=== PATIENT | male | born 1975 | race Two or more races ===

== ENCOUNTER 2023-02-27 18:27 | Emergency (ER) | payer OTHER ==
[~2023-02-27] VITALS: Ht 177.8 cm; Wt 77.1 kg
[2023-02-27] MEDS ORDERED: LOSARTAN POTASS25 MG (18:36)
== END 2023-02-27 19:37 | disposition home or self-care (01) ==
LOC: ER 18:27
DX: Z48.02 Encounter for removal of sutures (principal)